=== PATIENT | male | born 1950 | race Caucasian/White ===

== ENCOUNTER 2023-03-26 15:45 | Emergency (ER) | payer MEDICARE, OTHER ==
[2023-03-26] MEDS: Diphtheria,Pertussis(Acell),Tetanus Vaccine 0.5 ML Syringe IM ONE (20:04)
== END 2023-03-26 20:06 | disposition home or self-care (01) ==
LOC: JP.ED 15:45
DX: S06.0X0A Concussion without loss of consciousness, initial encounter (principal); S00.83XA Contusion of other part of head, initial encounter; S05.11XA Contusion of eyeball and orbital tissues, right eye, initial encounter; W22.8XXA Striking against or struck by other objects, initial encounter
CPT/HCPCS: 70450; 99283